=== PATIENT | female | born 1945 | race Caucasian/White ===

== ENCOUNTER 2023-09-05 07:32 | Outpatient (CLI) | payer MEDICARE, OTHER ==
[2023-09-05] MEDS ORDERED: Iopamidol 370 76% 100 ML VIAL ONE (08:56)
== END 2023-09-05 07:33 | disposition home or self-care (01) ==
LOC: CT 07:32
PROVIDERS: ATTEND Otolaryngology
DX: E21.3 Hyperparathyroidism, unspecified (principal)
CPT/HCPCS: 70492; 78072; A9500

== ENCOUNTER 2023-11-02 11:07 | Outpatient (CLI) | payer MEDICARE, OTHER ==
[2023-11-02 13:51] LABS: Hematocrit 39.6 % (34.9-44.5); Hemoglobin 13.4 g/dL (12.0-15.5); Mean Corpuscular HGB CONC 33.8 g/dL (32.0-36.0); Mean Corpuscular Hemoglobin 29.1 pg (27.0-33.0); Mean Corpuscular Volume 86.1 fl (81.6-98.3); Mean Platelet Volume 10.8 fl (7.4-10.4); Platelet Count 210 10x3/uL (150-450); RBC Distribution Width 13.6 % (11.5-14.5); White Blood Cell (WBC) Count 7.9 10x3/uL (3.5-10.5)
[2023-11-02 14:04] LABS: Bilirubin Neg (Negative); Blood, Urine 250 (Negative); Glucose, Urine (Dipstick) Normal (Negative); Ketone, Urine Negative (Negative); Leukocyte 500 (Negative); Nitrite Negative (Negative); Protein, Urine (Dipstick) 30 mg/dl (Neg-Trace); Urobilinogen Normal mg/dL (Less than 2)
[2023-11-02 14:10] LABS: Clarity Slightly Cloudy (Clear); PTT 33.3 sec (22.0-33.0); Prothrombin Time 11.1 sec (9.5-12.1)
[2023-11-02 14:19] LABS: RBC/HPF 21-50 HPF (0-3); WBC/HPF 21-50 HPF (0-3)
[2023-11-02 14:20] LABS: Bacteria/HPF 2+ HPF (None Seen); Calcium Oxalate Crystals 1+ HPF (None Seen); Mucous/LPF 1+ LPF (<2+)
[2023-11-02 14:28] LABS: Anion Gap 14 mmol/L (10-20); BUN (Urea Nitrogen) 20 mg/dL (9.8-20.1); Calc. Creatinine Clearance 0 mL/min (70-130); Calcium 11.1 mg/dL (7.8-10.44); Carbon Dioxide 26 mmol/L (23-31); Chloride 103 mmol/L (98-107); Estimated GFR 81; Glucose 117 mg/dL (83-110); Potassium 4.7 mmol/L (3.5-5.1); Sodium 138 mmol/L (136-145)
== END 2023-11-02 11:08 | disposition home or self-care (01) ==
LOC: LABBT 11:07
PROVIDERS: ATTEND Urology
DX: Z01.818 Encounter for other preprocedural examination (principal); N20.0 Calculus of kidney; R31.0 Gross hematuria; N28.9 Disorder of kidney and ureter, unspecified; E13.9 Other specified diabetes mellitus without complications; H81.13 Benign paroxysmal vertigo, bilateral; I48.11 Longstanding persistent atrial fibrillation; K86.9 Disease of pancreas, unspecified; R82.994 Hypercalciuria; N95.8 Other specified menopausal and perimenopausal disorders; N94.89 Other specified conditions associated with female genital organs and menstrual cycle; Z79.890 Hormone replacement therapy
CPT/HCPCS: 80048; 81001; 85027; 85610; 85730; 87077; 87086; 87186; 93005; 93010

== ENCOUNTER 2023-11-08 08:59 | Day surgery (SDC) | payer MEDICARE, OTHER ==
[2023-11-02 12:18] VITALS: BMI 32.5
[2023-11-08] MEDS ORDERED: LevoFLOXacin D5W 500 mg (100 mL) BAG ONE (09:30)
[2023-11-08] MEDS ORDERED: Ondansetron PF 4 MG/2 ML Vial ONE (11:20)
[2023-11-08] MEDS ORDERED: Lidocaine 1% PF 5 ML VIAL ONE (11:20)
[2023-11-08] MEDS ORDERED: fentaNYL PF 100 MCG/2 ML SYRINGE ONE (11:20)
[2023-11-08] MEDS ORDERED: PROPOFOL 20 ML ONE (11:20)
[2023-11-08] MEDS ORDERED: ePHEDrine Sulfate 50 MG/10 ML VIAL ONE (11:47)
[2023-11-08] MEDS ORDERED: Oxybutynin 5 MG TAB ONE (14:21)
[2023-11-08] MEDS ORDERED: Phenazopyridine HCl 100 MG TAB ONE (14:21)
== END 2023-11-08 15:05 | disposition home or self-care (01) ==
LOC: SDC 08:59
PROVIDERS: ATTEND Urology
PROC: 0TC14ZZ Extirpation of Matter from Left Kidney, Percutaneous Endoscopic Approach (ICD-10-PCS; principal; 2023-11-08)
PROC: 0TC04ZZ Extirpation of Matter from Right Kidney, Percutaneous Endoscopic Approach (ICD-10-PCS; 2023-11-08)
DX: N20.0 Calculus of kidney (principal); E03.9 Hypothyroidism, unspecified; E78.2 Mixed hyperlipidemia; I10 Essential (primary) hypertension; E13.9 Other specified diabetes mellitus without complications; H81.13 Benign paroxysmal vertigo, bilateral; I48.11 Longstanding persistent atrial fibrillation; N94.89 Other specified conditions associated with female genital organs and menstrual cycle; N95.8 Other specified menopausal and perimenopausal disorders; K86.9 Disease of pancreas, unspecified; N28.89 Other specified disorders of kidney and ureter; E21.3 Hyperparathyroidism, unspecified; Z98.890 Other specified postprocedural states; Z90.710 Acquired absence of both cervix and uterus; Z96.652 Presence of left artificial knee joint; Z79.01 Long term (current) use of anticoagulants; Z79.84 Long term (current) use of oral hypoglycemic drugs; Z79.85 Long-term (current) use of injectable non-insulin antidiabetic drugs; Z79.890 Hormone replacement therapy
CPT/HCPCS: 52356; 82365; C1713; C1747; C1769; C2617; 88300; J1956; J2405; J2704

== ENCOUNTER 2025-06-02 09:31 | Outpatient (CLI) | payer MEDICARE, OTHER | END 2025-06-02 09:32 | disposition home or self-care (01) | LOC: ULT 09:31 | PROVIDERS: ATTEND Internal Medicine Endocrinology, Diabetes & Metabolism | DX: E21.3 Hyperparathyroidism, unspecified (principal); E04.2 Nontoxic multinodular goiter | CPT/HCPCS: 76536 ==

== ENCOUNTER 2025-06-03 08:34 | Outpatient (CLI) | payer MEDICARE, OTHER | END 2025-06-03 08:35 | disposition home or self-care (01) | LOC: ULT 08:34 | PROVIDERS: ATTEND Internal Medicine Endocrinology, Diabetes & Metabolism | DX: E21.3 Hyperparathyroidism, unspecified (principal); R94.8 Abnormal results of function studies of other organs and systems | CPT/HCPCS: 78072; A9500 ==